=== PATIENT | female | born 1940 | race Caucasian/White ===

== ENCOUNTER → 2018-05-26 | Outpatient (CLI) | END | disposition home or self-care (01) ==

== ENCOUNTER → 2018-07-07 | Outpatient (CLI) | END | disposition home or self-care (01) ==

== ENCOUNTER → 2018-08-04 | Outpatient (CLI) | END | disposition home or self-care (01) ==

== ENCOUNTER 2018-08-14 05:34 | Day surgery (SDC) | END 2018-08-14 10:25 | disposition home or self-care (01) ==

== ENCOUNTER → 2018-09-01 | Outpatient (CLI) | END | disposition home or self-care (01) ==

== ENCOUNTER → 2018-09-29 | Outpatient (CLI) | payer MEDICARE, BC ==
[~2018-09-29] MED LIST: AMLO5TAB4 PO; CEPH-442 PO; CRES5 PO; LEVO50TA89 PO
--- NOTE | 2018-09-29 09:27 | PN ---
Date/Time of Note Date/Time of Note DATE: 09/29/18 TIME: 09:24 Assessment/Plan VTE Prophylaxis Pharmacological prophylaxis: other Assessment/Plan Assessment/Plan 78-year-old female status post right knee arthroscopy. She is progressing slowly and is improving with physical therapy. She will continue PT and follow- up in 2 months. The patient was reassured that the pain and stiffness are part of the healing process. If pain persists beyond the next few weeks, consider hyaluronic acid injections as well Subjective 24 Hr Interval Summary Free Text/Dictation Giselle is here for follow-up of right knee arthroscopy. She underwent lateral meniscectomy and chondroplasty a few weeks ago. The patient reports persistent pain especially on the posterior aspect of her knee. She reports that she is fine when she is lying down and in the early part of the day. Pain increases as the day progresses. There is some swelling and stiffness. There is no history of fever or chills. She is undergoing physical therapy and states that PT is helping Exam/Review of Systems Vital Signs Vitals Signs are stable, temperature is 98 degrees, respiration 12, pulse rate is 81 Exam Examination shows a pleasant female. The right knee has mild swelling. Range of motion is 5-120 degrees. There is medial and lateral joint line tenderness. There is no neurovascular deficit. Mild atrophy of the right quadriceps is noted. JOSUÉ TORO Sep 29, 2018 09:27
== END | disposition home or self-care (01) ==
LOC: HKI 08:56
PROVIDERS: ATTEND Orthopaedic Surgery
DX: Z09 Encounter for follow-up examination after completed treatment for conditions other than malignant neoplasm (principal); M25.561 Pain in right knee; Z96.651 Presence of right artificial knee joint; Z88.0 Allergy status to penicillin

== ENCOUNTER → 2018-12-08 | Outpatient (CLI) | payer MEDICARE, BC ==
--- NOTE | 2018-12-08 10:06 | PN ---
Date/Time of Note Date/Time of Note DATE: 12/08/18 TIME: 10:04 Assessment/Plan VTE Prophylaxis Pharmacological prophylaxis: other Assessment/Plan Assessment/Plan 78-year-old female who has progressed well after right knee arthroscopy. She has residual pain due to osteoarthritis of her knee. This was discussed with the patient, treatment options including continued exercises, anti-inflammatory medications and knee injections were discussed. The patient will continue a home exercise program and call back if she wants to proceed with injections Subjective 24 Hr Interval Summary Free Text/Dictation Giselle is a 78-year-old female who is status post right knee arthroscopy done a few months ago. She has progressed well and pain is decreased. She continues to have pain while getting up from a sitting position. There is also some clicking and popping of the knee. She does report similar pain in her left knee as well. She also reports pain in her ankles and feet. She is concerned about balance as well. There is no history of fever or chills she is completing her physical therapy today Exam/Review of Systems Exam Vitals Patient is afebrile, blood pressure 160/72, temperature 98, pulse rate 66 and respiration 14 Exam Examination of the right knee shows mild swelling. There is patellofemoral crepitus and tenderness. Range of motion is 5-120 degrees. There is no neurovascular deficit. No new x-rays were obtained today JOSUÉ TORO Dec 08, 2018 10:06
== END | disposition home or self-care (01) ==
LOC: HKI 08:25
PROVIDERS: ATTEND Orthopaedic Surgery
DX: M17.11 Unilateral primary osteoarthritis, right knee (principal); Z96.651 Presence of right artificial knee joint
CPT/HCPCS: G0463